=== PATIENT | female | born 1975 | race Hispanic/Latino ===

== ENCOUNTER 2020-04-17 23:02 | Observation (INO) | payer OTHER ==
--- OUTSIDE RECORDS SUMMARY | 2020-04-17 23:05 | XMS REPORT | Clinical Summary ---
:1975 Author Organization [facility] Address [address] [place] [address] Care Team Providers Name Role Phone Kellee Lyon MD Primary Care Provider [phone] Allergies Active Allergy Reactions Severity Noted Date Comments No Known Drug Allergies 02/03/2016 Medications Medication Sig Dispensed Refills Start Date End Date Status amLODIPine (NORVASC) TAKE 1 TABLET 90 tablet 1 10/23/2019 Active 5 mg BY MOUTH EVERY tabletIndications: DAY Essential hypertension ergocalciferol Take 1 capsule 12 capsule 1 04/15/2020 04/15/20 2 Active (VITAMIN D2) 50,000 (50,000 Units 1 unit capsule total) by mouth once a week. acetaminophen-codein Take 1-2 15 tablet 0 04/16/2020 04/21/20 2 Active e (TYLENOL WITH tablets by 0 CODEINE #3) 300-30 mouth every 6 mg per (six) hours as tabletIndications: needed for acute pain moderate pain for up to 5 days .acute pain. ondansetron (ZOFRAN) Take 1 tablet 20 tablet 0 04/16/2020 Active 4 MG tablet (4 mg total) 1 by mouth every 6 (six) hours for 30 days. amLODIPine (NORVASC) TAKE 1 TABLET 90 tablet 1 09/13/201810/08 Discontinued 5 mg (5 MG TOTAL) 0 tabletIndications: BY MOUTH Essential DAILY. hypertension Active Problems Problem Noted Date Abnormal glucose level 02/03/2016 Hypertension 02/03/2016 Impaired fasting glucose 02/03/2016 Multinodular goiter 02/03/2016 Encounters Date Type Specialty Care Team Description 04/15/2020 - Emergency Emergency Medicine Iruke, Seney Bili gillian colic (Primary Dx); 04/16/2020 MD [place] Gallstones; Right upper esvin drant abdominal pain 04/15/2020 Travel 04/15/2020 Refill Internal Medicine Kizzy Peterson MA 04/11/2020 Orders Only Family Medicine ProviderFiona MD 03/21/2020 Telephone Internal Medicine Juve Luciano 03/13/2020 Orders Only Internal Medicine Kizzy Peterson MA Enc ounter for screening mammogram for breast cancer; Goiter 02/12/2020 Lab Lab Kellee Lyon Annual phy sical exam MD Claudia 02/12/2020 Office Visit Internal Medicine Kellee Lyon l physical exam (Primary Dx); MD [place] Flu vaccine nee d; Encounter for s creening mammogram for breast cancer; Screening for s kin cancer; Goiter 02/12/2020 Travel 10/23/2019 Refill Internal Medicine Kellee Lyon MD hypertension after 04/17/2019 Immunizations Name Administration Dates Next Due FLUCELVAX QUAD PF 02/12/2020 FLUZONE QUAD 03/15/2019 FLUZONE QUAD PF 02/03/2016 Influenza Trivalent 02/07/2014 Surgical History Surgery Date Site/Laterality Comments SECTION, LOW x 2 TRANSVERSE EYE SURGERY age 4 SECTION ESOPHAGOSCOPY / EGD 05/11/2017 Dr Stoney Mathis er: gastritis, HH, positive for Bar rett's BIOPSY, LESION, HEAD OR NECK 05/10/2005 - Bilateral Lef t then right - 05/09/2006 colloid nodule; [facility] Medical History Medical History Date Comments Hypertension 05/2003 Obesity Visual impairment Wear glasses Multinodular goiter Hot nodule on right at [facility] 04/15/2005, colloidal cyst aspir ated ' bilateral IGT (impaired glucose tolerance) 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 Dr Levin, repeat 1 year Inconclusive mammogram 02/2020 U/s negative, rep eat ni October Family History Medical History Relation Name Comments Diabetes Father Hypertension Father Melanoma Maternal Grandfather Diabetes Maternal Grandmother Heart disease Maternal Grandmother Hyperlipidemia Maternal Grandmother Hypertension Maternal Grandmother Kidney disease Maternal Grandmother Arthritis Mother Diabetes Paternal Grandfather Cancer Neg Hx Relation Name Status Comments Father Maternal Grandfather Maternal Grandmother Mother Paternal Grandfather Social History Tobacco Use Types Packs/Day Years Used Date Never Smoker Smokeless Tobacco: Never Used Tobacco Cessation: Counseling Given: No Alcohol Use Drinks/Week oz/Week Comments Yes Wine maybe twice a year Social Isolation Answer Date Recorded In a typical week, how many times do you talk on the phone N ot asked with family, friends, or neighbors? How often do you get together with friends or relatives? Not asked How often do you attend spiritism or christianity services? Not as ked Do you belong to any clubs or organizations such as spiritism N ot asked groups, unions, fraternal or athletic groups, or school groups? How often do you attend meetings of the clubs or Not asked organizations you belong to? Are you now , , , , never Mar ried 06/11/2018 or living with a partner? Sex Assigned at Date Recorded Female 03/15/2019 9:19 PM [employer] Job Start Date Occupation Industry Not on file Not on file Not on file COVID-19 Exposure Response Date Recorded In the last month, have you been in contact with No / Unsure 04/15/2020 10:59 PM [employer] someone who was confirmed or suspected to have Coronavirus / COVID-19? History Length Weight Head Circum Gestation Age D/C Weight APGARs Delivery Me thod Feeding N/c. Obstetrics History Grav Para Term Pre Abrt (TAB) (SAB) (Ect) Mult Lvng Comments 2 2 [employer] sect ions. Date Outcome GA Total Labor/2nd/3rd Weight Sex Delivery Anes PTL Mary A 1 A5 Name Clin Labor Para Para Last Filed Vital Signs Vital Sign Reading Time Taken Comments Blood Pressure 112/58 04/16/2020 1:22 AM [employer] Pulse 77 04/16/2020 1:22 AM [employer] Temperature 36.4 C (97.5 F) 04/16/2020 1:22 AM BAND BOOKER Respiratory Rate 16 04/16/2020 1:22 AM [employer]AND BOOKER Oxygen Saturation 97% 04/16/2020 1:22 AM [employer]AND [employer]ER Inhaled Oxygen Concentration - - Weight 119 kg (263 lb) 04/15/2020 11:21 PM [employer] Height 170.2 cm (5' 7") 04/15/2020 11:21 PM [employer] Body Mass Index 41.19 04/15/2020 11:21 PM [employer]ER Plan of Treatment Date Type Specialty Care Team Description 04/24/2020 Office Visit General Surgery Wiley Walker MD [address] [place], [place] [address] [phone] 05/23/2020 Office Visit General Surgery Sterling Darby MD [address] [place], [place] [address] [phone] 06/21/2020 Office Visit Internal Medicine Sharda Lyon MD [address] [facility] [address] [place], [place] [address] [phone] Health Maintenance Due Date Last Done Comments CERVICAL CANCER SCREENING 11/10/1996 INFLUENZA VACCINE Completed 02/12/2020, 03/15/2019, 2017, Additional history exists Procedures Procedure Name Priority Date/Time Associated Comments Diagnosis HCG QUALITATIVE, URINE STAT 04/16/2020 12:53 R esults for this SCREEN AM [employer] procedure are i n the results section. URINALYSIS STAT 04/16/2020 12:53 Results for this AM [employer] procedure are i n the results section. US GALLBLADDER STAT 04/16/2020 12:08 Results f or this AM [employer] procedure are i n the results section. ESTIMATED GFR STAT 04/15/2020 11:40 Results fo r this PM [employer] procedure are i n the results section. AMYLASE LEVEL STAT 04/15/2020 11:40 Results fo r this PM [employer] procedure are i n the results section. HC COMPLETE BLD COUNT STAT 04/15/2020 11:40 Re sults for this W/AUTO DIFF PM [employer] procedure are i n the results section. COMPREHENSIVE STAT 04/15/2020 11:40 Results fo r this METABOLIC PANEL PM [employer] procedure ar e in the results section. US BREAST COMPLETE Routine 04/11/2020 RIGHT VITAMIN D 25 HYDROXY Routine 02/12/2020 12:07 Annual physical Results for this LEVEL PM CDT exam procedure are i n the results section. T4, FREE Routine 02/12/2020 12:07 Annual physical Results for this PM CDT exam procedure are i n the results section. THYROID STIMULATING Routine 02/12/2020 12:07 Annual physical R esults for this HORMONE PM CDT exam procedure are i n the results section. CBC WITH PLATELET AND Routine 02/12/2020 12:07 Annual physical Results for this DIFFERENTIAL PM CDT exam procedure are i n the results section. COMPREHENSIVE Routine 02/12/2020 12:07 Annual physical Results for this METABOLIC PANEL PM CDT exam procedure ar e in the results section. HEMOGLOBIN A1C Routine 02/12/2020 12:07 Annual physical Result s for this PM CDT exam procedure are i n the results section. LIPID PANEL Routine 02/12/2020 12:07 Annual physical Results for this PM CDT exam procedure are i n the results section. ECG 12-LEAD Routine 02/12/2020 10:12 Annual physical Results for this AM CDT exam procedure are i n the results section. after 04/17/2019 Results Urinalysis (04/16/2020 12:53 AM BAND BOOKER) Glucose, UA Negative Negative [facility] Bilirubin, UA Negative Negative [facility] Ketones, UA Negative Negative [facility] Specific gravity, >=1.030 1.001 - 1.035 [facility] Blood, UA Negative Negative [facility] Comment: SELLS Cipher Expert Name: trainee EMERGENCY CARE Device ID: [id number] CENTER pH, UA 5.0 5.0 - 8.5 [facility] Protein, UA Negative Negative [facility] Urobilinogen, UA <2.0 <2.0 [facility] Nitrite, UA Negative Negative [facility] Leukocyte Negative Negative [facility] esterase, UA [facility] Color, UA Yellow [facility] Appearance, UA Hazy [facility] Specimen Urine Performing Organization Address City/State/ZIP Code Phon e Number DEPARTMENT OF PATHOLOGY AND [address] [place] [phone] [facility], [address] [address] [facility]ER[facility]Y [facility] hCG qualitative, urine screen (04/16/2020 12:53 AM BAND BOOKER) hCG qualitative, Negative [facility] urine Comment: SELLS Sensitivity of HCG test: 25 mIU/mL [facility] Negative test results in patients suspected CENTER to be should be retested with a sample obtained 48-72 hours later, or by performing a quantitative assay. Cipher Expert Name: trainee Device ID: [id number] Specimen Urine Performing Organization Address City/State/ZIP Code Phon e Number DEPARTMENT OF PATHOLOGY AND [address] [place], [place] [address] [facility] [address] [place] [address] EMERGENCY CARE CENTER US Gallbladder (04/16/2020 12:08 AM BAND [employer]OOKER) Specimen Narrative Performed At EXAMINATION: US GALLBLADDER [facility] CLINICAL HISTORY: 44 years Female Cholel ithiasis COMPARISON: CT abdomen/pelvis 04/23/20 17 FINDINGS: Gallbladder: A shadowing stone is seen in the gallblad jenny neck measuring up to 3.5 cm. Biliary sludge is seen throughout the ga llbladder. No gallbladder wall thickening or perichole cystic fluid is identified. CBD: 2.2 mm, within normal limits. Liver: The liver demonstrates normal echogenicity with out focal mass or intrahepatic biliary ductal dilatation. Portal vein: The portal vein demonstrates normal hepat opetal flow. The portal vein measures 1.1 cm. IMPRESSION: Cholelithiasis without sonographic evide nce of cholecystitis. [id number] Procedure Note Interface, Radiology Results Incoming - 04/16/2020 12:14 AM BAND [employer]ER EXAMINATION: US GALLBLADDER CLINICAL HISTORY: 44 years Female Cholel ithiasis COMPARISON: CT abdomen/pelvis 7 FINDINGS: Gallbladder: A shadowing stone is seen i n the gallbladder neck measuring up to 3.5 cm. Biliary sludge is seen throughout the gallbladder. No gallbladder wall thickening or pericholecystic fluid is identified. CBD: 2.2 mm, within normal limits. Liver: The liver demonstrates normal ech ogenicity without focal mass or intrahepatic biliary ductal dilatation. Portal vein: The portal vein demonstrate s normal hepatopetal flow. The portal vein measures 1.1 cm. IMPRESSION: Cholelithiasis without sonographic evide nce of cholecystitis. [id number] Performing Organization Address City/State/ZIP Code Phon e Number [facility] [address] [place] [address] Estimated GFR (04/15/2020 11:40 PM BAND BOOKER) Estimated GFR 78 mL/min/1.73 CHRISTY KO Comment: m2 SELLS Catergory Units Interpretation [facility] C[facility] G1 >=90 Normal or high CENTER G2 60-89 Mildly decreased G3a 45-59 Mildly to moderately decreas ed G3b 30-44 Moderately to severely decre ased G4 15-29 Severely decreased G5 <15 Kidney failure The eGFR was calculated using the Chronic Kidney Disea se Epidemiology Collaboration (CKD-EPI) equation. Interpretation is based on recommendations of the National Kidney Foundation-Kidney Disease Outcomes Esvin lity Initiative (NKF-KDOQI) published in 2014. Specimen Plasma Performing Organization Address City/State/ZIP Code Phon e Number DEPARTMENT OF PATHOLOGY AND [address] [place] [address] [facility] [id number] [place] [address] EMER[facility]Y [facility]ARE CENTER CBC with platelet and differential (04/15/2020 11:40 PM BAND BOOKER)Only the most recent of2 resultswithin the time period is included. Pathologist Sig nature WBC 12.19 (H) 4.50 - 11.00 k/uL [facility] RBC 4.72 4.20 - 5.50 m/uL [facility] HGB 14.1 12.0 - 16.0 g/dL [facility] HCT 40.0 37.0 - 47.0 % [facility] MCV 84.7 82.0 - 100.0 fL [facility] MCH 29.9 27.0 - 34.0 pg [facility] MCHC 35.3 31.0 - 37.0 g/dL [facility] RDW - SD 39.9 37.0 - 55.0 fL [facility] MPV 11.2 8.8 - 13.2 fL [facility] Platelet count 299 150 - 400 k/uL [facility] Neutrophils 67.6 39.0 - 69.0 % [facility] Lymphocytes 23.2 (L) 25.0 - 45.0 % [facility] Monocytes 7.1 0.0 - 10.0 % [facility] Eosinophils 1.5 0.0 - 5.0 % [facility] Basophils 0.6 0.0 - 1.0 % [facility] Specimen Plasma Performing Organization Address City/[facility] Phon e Number DEPARTMENT OF PATHOLOGY AND [address] [place] [phone] Amylase level (04/15/2020 11:40 PM BAND BOOKER) Pathologist Sig nature Amylase 38 14 - 97 U/L [facility] Specimen Plasma Performing Organization Address City/[facility] Phon e Number DEPARTMENT OF PATHOLOGY AND [address] [place] [address] Comprehensive metabolic panel (04/15/2020 11:40 PM BAND BOOKER)Only the most recent of2 resultswithin the time period is included. Sodium 140 128 - 145 mEq/L [facility] Potassium 4.3 3.6 - 5.1 mEq/L [facility] CO2 28 18 - 33 mEq/L [facility] Chloride 107 98 - 108 mEq/L [facility] Glucose 129 (H) 73 - 118 mg/dL [facility] Calcium 9.7 8.0 - 10.3 [facility] mg/dL [facility] BUN 15 7 - 22 mg/dL [facility] Creatinine 0.9 0.5 - 0.9 mg/dL [facility] Alkaline phosphatase 74 42 - 141 U/L [facility] ALT 24 10 - 47 U/L [facility] AST 21 11 - 38 U/L [facility] Total bilirubin 0.8 0.2 - 1.6 mg/dL [facility] Albumin 4.4 3.3 - 5.5 g/dL [facility] Protein 7.8 6.4 - 8.1 g/dL [facility] Anion gap 5@ANIO (L) 7 - 15 mEq/L [facility] A/G ratio 1.3 0.7 - 3.8 [facility] Specimen Plasma Performing Organization Address City/[facility]/ZIP Code Phon e Number DEPARTMENT OF PATHOLOGY AND [id number] [place] [address] [facility], [facility] [address] [place] [address] EMERGENCY CARE CENTER US Breast Complete Right (04/11/2020) Narrative Performed At This result has an attachment that is no t available. Vitamin D 25 hydroxy level (02/12/2020 12:07 PM CDT) Vitamin D, 23.7 (L) 30.0 - 100.0 [facility] 25-hydroxy Comment: ng/mL Vitamin D deficiency has been defined by the [place] of Medicine and an Endocrine Society practice guideline a s a level of serum 25-OH vitamin D less than 20 ng/mL (1,2 ). The Endocrine Society went on to further define vitami n D insufficiency as a level between 21 and 29 ng/mL (2). 1. IOM ([place] of Medicine). 2010. Dietary referenc e intakes for calcium and D. [place]: The National Academies Press. 2. Shante MF, Zak CONNER, Linda CHRISTY, et al. Evaluation, treatment, and prevention of vitamin D deficiency: an Endocrine Society clinical practice guideline. JCEM. 2010; 96(7):1911-30. Specimen Blood Narrative Performed At Performed at: - [facility] [address] [place] [address] [id number] [employer] Mechanics Supervisor: Daquan Roman MD, Phone: [phone] Performing Organization Address [facility] Phon e Number [facility] Thyroid stimulating hormone (02/12/2020 12:07 PM CDT) Pathologist Sig nature TSH 0.770 0.450 - 4.500 uIU/mL [facility] Specimen Blood Narrative Performed At Performed at: - [facility] [address] [place] [address] [id number] [phone] [employer] Mechanics Supervisor: Daquan Roman MD, Phone: [phone] Performing Organization Address [facility]/ZIP [facility] Phon e Number [facility] T4, free (02/12/2020 12:07 PM CDT) Pathologist Sig nature T4, free 1.33 0.82 - 1.77 ng/dL [facility] Specimen Blood Narrative Performed At Performed at: [facility] [address] [place] [address] [id number] [phone] [employer] Mechanics Supervisor: Daquan Roman MD, Phone: [phone] Performing Organization Address [facility] e Number [facility] Hemoglobin A1c (02/12/2020 12:07 PM CDT) Pathologist Sig nature Hemoglobin A1C 6.2 (H) 4.8 - 5.6 % [facility] Comment: Prediabetes: 5.7 - 6.4 Diabetes: >6.4 Glycemic control for adults with diabetes : <7.0 Specimen Blood Narrative Performed At Performed at: [facility] [address] [place] [address] [id number] [phone] [employer] Mechanics Supervisor: Daquan Roman MD, Phone: [phone] Performing Organization Address [facility] Phon e Number [facility] Lipid panel (02/12/2020 12:07 PM CDT) Pathologist Sig nature Cholesterol 157 100 - 199 mg/dL [facility] Triglycerides 102 0 - 149 mg/dL [facility] HDL cholesterol 55 >39 mg/dL [facility] VLDL cholesterol natty 19 5 - 40 mg/dL [facility] LDL Chol Calc (NIH) 83 0 - 99 mg/dL [facility] Non-HDL cholesterol 102 0 - 129 mg/dL [facility] Specimen Blood Narrative Performed At Performed at: [facility] [address] [place] [address] [id number] [phone] [employer] Mechanics Supervisor: Daquan Roman MD, Phone: [phone] Performing Organization Address [facility] e Number [email or web address] ECG 12 lead (02/12/2020 10:12 AM CDT) Pathologist Sig nature Ventricular rate 74 [facility] Atrial rate 74 [facility] WA interval 156 [facility] QRSD interval 76 [facility] QT interval 398 [facility] QTC interval 441 [facility] P axis 1 31 [facility] QRS axis 1 8 [facility] T wave axis 17 [facility] EKG impression Normal sinus [facility] rhythm-Minimal voltage criteria for LVH, may be normal variant-No previous ECGs available-Electronicall y Signed By Kellee Lyon MD ([id number]) on 02/12/2020 11:25:19 AM Specimen Narrative Performed At This result has an attachment that is no t available. Performing Organization Address City/State/ZIP Code Phon e Number [facility] MUSE [address] [place] [address] after 04/17/2019 Advance Directives For more information, please contact: [phone] Type Date Recorded Patient Log Rafter Explanati on Advance Directives, Living Will and Medical Power of Real Estate Salesperson
--- OUTSIDE RECORDS SUMMARY | 2020-04-17 23:06 | XMS REPORT | Continuity of Care Document ---
:1975 Author Organization [facility] t Address [facility] Ilya Singh [address] [place] [address] Care Team Providers Name Role Phone Toni HUFFMAN, Arvin F. Primary Care Physician [place] oL MD Attending Clinician Nicholas CHEN Attending Clinician Unavailable Provider Attending Clinician Ankita Attending Clinician Unavailable Toni HUFFMAN, FKvng Attending Clinician Payers Payer Name Policy Type Policy Effective Date Expiration Date [facility] ce Number AETNAAETNA PPO [id number] 2016 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 Family History Family Member Diagnosis Comments Start Date Stop Date Source Natural father Diabetes Sims Me thodist Natural father Hypertension Levi Moser Maternal grandfather Melanoma Klaus Moser Maternal grandmother Diabetes [place] Yazidi Maternal grandmother Heart disease [place] Yazidi Maternal grandmother Hyperlipidemia Sims Yazidi Maternal grandmother Hypertension [place] Yazidi Maternal grandmother Kidney disease Sims Yazidi Natural mother Arthritis [facility] pedroodi Paternal grandfather Diabetes [place] Family member Cancer [place] [facility] Social History Social Habit Start Date Stop Date Quantity Comments Source History SDOH Social [place] Connections Phone Methodi st History SDOH Social [place] Connections Get Yazidi Together History SDOH Social [place] Connections Episc[facility]alian Method ist History SDOH Social [place] [facility]ctions Yazidi Membership History SDOH Social [place] Connections Yazidi Meetings Sex Assigned At F [place] Yazidi Exposure to Not sure [place] SARS-CoV-2 (event) Method ist Tobacco use and 2020-04-15 2020-04-15 Never used [place] exposure 00:00:00 00:00:00 Yazidi Alcohol intake 2020-04-15 2020-04-15 Current drinker [place] 00:00:00 00:00:00 of alcohol Yazidi (finding) History SDOH Social 2018-06-11 2018-06-11 3 [place] Connections Living 00:00:00 00:00:00 Method ist Alcohol Comment 2016-01-29 2016-01-29 Wine maybe twice [place] ston 00:00:00 00:00:00 a year Yazidi Smoking Status Start Date Stop Date Source Never smoker [place] t Medications Ordered Filled Start Stop Current Ordering Indication Dosage Frequency Signature Comments Components Source Medication Medication Date Date Medication? Clinician (SIG) Name Name ondansetron 2019-05- Yes 4mg Q6H Take 1 [place] ston (ZOFRAN) 4 2-08 -07 tablet (4 Met h[facility] MG tablet 00:00: 23:59 mg total) st 00 :00 by mouth every 6 (six) hours for 30 days. acetaminoph 2019-05- Yes acute pain 1{tbl} Q6H Take 1-2 Sims en-codeine 2-08 12-13 tablets by Me bruner (TYLENOL 00:00: 23:[address] WITH 00 :00 every 6 CODEINE #3) (six) 300-30 mg hours as per tablet needed for moderate pain for up to 5 days .acute pain. ergocalcife 2019-05- Yes [id number] Q7D Take 1 [place] rol 2-07 12-07 capsule Methodi (VITAMIN 00:00: 23:59 (50,000 st D2) 50,000 00 :00 Units unit total) by capsule mouth once a week. amLODIPine Yes Essential TAKE 1 [place] ([facility]) 5 6-15 hypertensio TABLET BY Methodi mg tablet 00:00: n MOUTH st 00 EVERY DAY amLODIPine 2020- No Essential TAKE 1 [place] ([facility]) 5 5-07 06-15 hypertensio TABLET (5 [facility]i mg tablet 00:00: 00:00 n MG TOTAL) st 00 :00 BY MOUTH DAILY. Immunizations Ordered Immunization Filled Immunization Date Status Commen ts Source Name Name FLUCELVAX QUAD PF 2020-02-12 Completed [place] 00:00:00 Yazidi FLUZONE QUAD 2019-03-15 Completed [place] 00:00:00 Yazidi FLUZONE QUAD PF 2016-02-03 Completed [place] 00:00:00 Y[place]idi Influenza Trivalent 2014-02-07 Completed [place] 00:00:00 Yazidi Vital Signs Vital Name Observation Time Observation Value Comments Source Systolic blood 2020-04-16 01:22:00 112 mm[Hg] [place] pressure Diastolic blood 2020-04-16 01:22:00 58 mm[Hg] [place] Y[place]idi pressure Heart rate 2020-04-16 01:22:00 77 /min Levi Moser Body temperature 2020-04-16 01:22:00 36.39 Natalya [place] Yazidi Respiratory rate 2020-04-16 01:22:00 16 /min [place] Oxygen saturation in 2020-04-16 01:22:00 97 /min Levi Moser Arterial blood by Pulse oximetry Body height 2020-04-15 23:21:00 170.2 cm Levi Moser Body weight 2020-04-15 23:21:00 119.296 kg Levi Moser BMI 2020-04-15 23:21:00 41.19 kg/m2 Levi Moser Procedures Procedure Date / Time Performed Performing Clinician Sourc e URINALYSIS 2020-04-16 00:53:00 Augustus Lo Me thodist [place] HCG QUALITATIVE, URINE 2020-04-16 00:53:00 Augustus Lou storui Yazidi SCREEN [place] US GALLBLADDER 2020-04-16 00:08:51 Augustus Lo Me thodist [place] COMPREHENSIVE METABOLIC 2020-04-15 23:40:00 Augustus Lo laverne Yazidi PANEL [place] HC COMPLETE BLD COUNT 2020-04-15 23:40:00 Augustus Lo laverne Moser W/AUTO DIFF [place] AMYLASE LEVEL 2020-04-15 23:40:00 Augustus Lo Ia thodist [place] ESTIMATED GFR 2020-04-15 23:40:00 Augustus Lo Ia thodist [place] US BREAST COMPLETE RIGHT 2020-04-11 00:00:00 Provider, Rodolfo Moser LIPID PANEL 2020-02-12 12:07:00 Arvin Lyon HEMOGLOBIN A1C 2020-02-12 12:07:00 Arvin Lyon COMPREHENSIVE METABOLIC 2020-02-12 12:07:00 Arvin Lyon PANEL CBC WITH PLATELET AND 2020-02-12 12:07:00 Arvin Lyon DIFFERENTIAL THYROID STIMULATING 2020-02-12 12:07:00 Arvin Lyon HORMONE T4, FREE 2020-02-12 12:07:00 Arvin Lyon VITAMIN D 25 HYDROXY 2020-02-12 12:07:00 Arvin Lyon LEVEL ECG 12-LEAD 2020-02-12 10:12:53 Arvin Lyon Plan of Care Planned Activity Planned Date Details Comments Source Future Scheduled 1996-11-10 Screening for Levi Ia thodist Test 00:00:00 malignant neoplasm of cervix (procedure) [code = 698562180] Encounters Start End Encounter Admission Attending Care Care Encounter Source Date/Time Date/Time Type Type Clinicians Facility Department ID 2020-04-15 2020-04-16 Emergency IRENA [facility] [id number] [place] 00:00:00 00:00:00 AUGUSTUS [address] 2020-02-12 2020-02-12 Outpatient TONI [facility] [id number] [place] 00:00:00 00:00:00 ARVIN [address] 2020-02-12 2020-02-12 Outpatient [facility] [id number] [place] 00:00:00 00:00:[address] Results Test Description Test Time Test Comments Results Result Comments Source hCG qualitative, urine screen 2020-04-16 01:01:32 Test Item Value Reference Range Interpretation Comme nts hCG qualitative, urine (test code = Negative Sensitivity of HCG test: 25 6-3) mIU/mLNegative test results in patients suspec berta to be should be retes berta with a sample obtained 48-72 hours later, or by performing a qu antitative assay. Tube Man Name: traineeDevice ID: [id number] Sims [id number] 00:58:05 Test Item Value Reference Range Interpretation Comments Glucose, UA (test Negative Negative code = 71220-6) Bilirubin, UA (test Negative Negative code = 5770-3) Ketones, UA (test Negative Negative code = 2514-8) Specific gravity, UA >=1.030 1.001-1.035 (test code = 5811-5) Blood, UA (test code Negative Negative Operato r Name: = 5794-3) traineeDevice I D: [id number] pH, UA (test code = 5.0 5.0-8.5 5803-2) Protein, UA (test Negative Negative code = 10764-4) Urobilinogen, UA <2.0 <2.0 (test code = 93154-3) Nitrite, UA (test Negative Negative code = 5802-4) Leukocyte esterase, Negative Negative UA (test code = 5799-2) Color, UA (test code Yellow = 5778-6) Appearance, UA (test Hazy code = 5767-9) Sims MethodistAmylase [id number] 00:13:14 Test Item Value Reference Range Interpretation Comments Amylase (test code = 1798-8) 38 U/L 14-97 Levi Cespedes [id number] 00:11:10Hm Interface, Radiology Results - 04/16/2020 12:14 AM CSTEXAMINATION: US GALLBLADDERCLINICAL HISTORY: 44 years Female CholelithiasisCOMPARISON: CT abdomen/pelvis 04/23/2017FINDINGS:Gallbladder: A shadowing stone is seen in the gallbladder neck measuring up to 3.5 cm. Biliary sludge is seen throughout the gallbladder. No gallbladder wall thickening or pericholecystic fluid is identified.CBD: 2.2 mm, within normal limits.Liver: The liver demonstrates normal echogenicity without focal mass or intrahepatic biliary ductal dilatation.Portal vein: The portal vein demonstrates normal hepatopetal flow. The portal vein measures 1.1 cm.IMPRESSION:Cholelithiasis without sonographic evidence of chol ecystitis.[id number] MethodistCom[facility] metabolic [id number] 00:05:28 Test Item Value Reference Range Interpretation Comments Sodium (test code = 2951-2) 140 128- 145 mEq/L Potassium (test code = 2823-3) 4.3 3.6- 5.1 mEq/L CO2 (test code = 2027-9) 28 18- 33 mEq/L Chloride (test code = 2075-0) 107 98- 108 mEq/L Glucose (test code = 2345-7) 129 mg/dL 73-118 H Calcium (test code = 14369-8) 9.7 mg/dL 8-10.3 BUN (test code = 3094-0) 15 mg/dL 7-22 Creatinine (test code = 2160-0) 0.9 mg/dL 0.5-0.9 Alkaline phosphatase (test code = 74 U/L 42-141 6768-6) ALT (test code = 1742-6) 24 U/L 10-47 AST (test code = 1920-8) 21 U/L 11-38 Total bilirubin (test code = 0.8 mg/dL 0.2-1.6 1974-2) Albumin (test code = 1751-7) 4.4 g/dL 3.3-5.5 Protein (test code = 2885-2) 7.8 g/dL 6.4-8.1 Anion gap (test code = 09840-5) 5@ANIO 7- 15 mEq/L L A/G ratio (test code = 1759-0) 1.3 0.7-3.8 Lab Interpretation (test code = Abnormal 76663-7) Levi MethodistCB with platelet and [id number] 00:05:28 Test Item Value Reference Range Interpretation Comments WBC (test code = 96416-3) 12.19 4.50- 11.00 k/uL H RBC (test code = 18756-5) 4.72 m/uL 4.2-5.5 HGB (test code = 718-7) 14.1 g/dL 12-16 HCT (test code = 4544-3) 40.0 % 37-47 MCV (test code = 787-2) 84.7 fL 82-100 MCH (test code = 785-6) 29.9 pg 27-34 MCHC (test code = 786-4) 35.3 g/dL 31-37 RDW - SD (test code = 00195-0) 39.9 fL 37-55 MPV (test code = 09961-1) 11.2 fL 8.8-13.2 Platelet count (test code = 299 150- 400 k/uL 65787-4) Neutrophils (test code = 80482-2) 67.6 % 39-69 Lymphocytes (test code = 60995-8) 23.2 % 25-45 L Monocytes (test code = 68419-9) 7.1 % 0-10 Eosinophils (test code = 52260-2) 1.5 % 0-5 Basophils (test code = 19584-3) 0.6 % 0-1 Lab Interpretation (test code = Abnormal 33289-6) Sims MethodistEstimated [id number] 00:05:28 Test Item Value Reference Range Interpretation Comments Estimated GFR (test 78 mL/min/1.73 m2 Caterg ory Units code = 5488) InterpretationG 1 >=90 Normal or highG2 60-89 Mildly tfngdrfymH8r 45-59 Mildly to mode rately qrkwrsvltP8w 30-44 Moderately to severely decreasedG4 15-29 Severely decre asedG5 <15 Kidn ey failureThe eGFR was calculated luis enrique g the Chronic Kidney Disease Epidemiology Co llaboration (CKD-EPI) equat ion. Interpretation is based on recommendations of the National Kidney Foundation-Kidn ey Disease Outcomes Qualit y Initiative (NKF-KDOQI) pub lished in 2014. Levi MethodistHemoglobin [id number] 16:10:00 Test Item Value Reference Range Interpretation Comments Hemoglobin A1C (test 6.2 % 4.8-5.6 H code = 4548-4) Prediabetes: 5.7 - 6.4 Diabetes: >6.4 Glycemic control for adults with diabetes: <7.0 TIA (test code = TIA) Performed at: [facility] [address] [id number] Director: Daquan Roman MD, Phone: [phone] Lab Interpretation Abnormal (test code = 60454-8) [place] MethodistThyroid stimulating [id number] 09:05:00 Test Item Value Reference Range Interpretation Comments TSH (test code = 0.770 0.450- 4.500 uIU/mL 29598-9) TIA (test code = Performed at: TIA) [facility] [address] [id number] Director: Daquan Roman MD, Phone: [phone] [place] MethodistVitamin D 25 hydroxy [id number] 08:14:00 Test Item Value Reference Range Interpretation Comments Vitamin D, 23.7 ng/mL 30-100 L Vitamin D 25-hydroxy (test deficiency has been code = 37260-1) defined by [facility] and an Endocrine Socie ty practice guidel ine as alevel of se rum 25-OH vitamin D less than 20 ng /mL (1,2).The Endoc rine Society went on to further define vitamin Dinsufficiency as a level between 2 1 and 29 ng/mL (2 ).1. IOM ([place] of Medicine). 2010 . Dietary referen ce intakes for natty cium and D. [place]: The [employer] .2. Shante MF, Carmen CONNER, Stanford CHRISTY, et al. Evaluation, treatment, and prevention of vitamin D deficiency: an Endocrine Socie ty clinical practi ce guideline. JCEM . 2010; 96(7):1911-30. TIA (test code = Performed at: TIA) [facility] [address] [id number] Director: Daquan Roman MD, Phone: [phone] Lab Interpretation Abnormal (test code = 19463-4) [place] MethodistLipid [id number] 05:07:00 Test Item Value Reference Range Interpretation Comments Cholesterol (test code = 157 mg/dL 746-990 3269-3) Triglycerides (test code 102 mg/dL 0-149 = 2571-8) HDL cholesterol (test 55 mg/dL >39 code = 2085-9) VLDL cholesterol natty 19 mg/dL 5-40 (test code = 20896-2) LDL Chol Calc ([facility]) 83 mg/dL 0-99 (test code = 58462-4) Non-HDL cholesterol 102 mg/dL 0-129 (test code = 18336-9) TIA (test code = TIA) Performed at: - [facility] [id number] Director: Daquan Roman MD, Phone: [phone] [facility], [id number] 05:07:00 Test Item Value Reference Range Interpretation Comments T4, free (test code 1.33 ng/dL 0.82-1.77 = 3024-7) TIA (test code = Performed at: - TIA) [facility] [id number] Director: Daquan Roman MD, Phone: [phone] [facility] 12 [id number] 11:25:21 Test Item Value Reference Range Interpretation Comments Ventricular rate (test 74 code = 253) Atrial rate (test code = 74 255) OH interval (test code = 156 266) QRSD interval (test code 76 = 260) QT interval (test code = 398 264) QTC interval (test code 441 = 265) P axis 1 (test code = 31 267) QRS axis 1 (test code = 8 268) T wave axis (test code = 17 270) EKG impression (test Normal sinus code = 273) rhythm-Minimal voltage criteria for LVH, may be normal variant-No previous ECGs available-Electronica lly Signed By Arvin Lyon MD ([id number]) on 02/12/2020 11:25:19 AM Levi Moser
[2020-04-18] MEDS ORDERED: MORPHINE 4 MG/ML SYR ONE (00:35)
[2020-04-18] MEDS ORDERED: ONDANSETRON 4 MG/2 ML VIAL ONE (00:35)
[2020-04-18 00:45] LABS: Urine Specific Gravity >1.030 (1.005-1.030)
[2020-04-18 00:46] LABS: Urine Blood NEGATIVE (NEG); Urine Glucose NEGATIVE (NEG); Urine Protein NEGATIVE (NEG); Urine pH 5.5 (5.0-7.0)
[2020-04-18 00:50] LABS: Absolute Lymphocytes (CBC) 2.4 K/uL (0.7-4.9); Basophils % 0.9 % (0-1.3); Hematocrit 40.7 % (36.0-45.0); Lymphocytes % 19.2 % (15.3-44.8); RBC Red Blood Cell Count 4.68 M/uL (3.86-4.86)
[2020-04-18 01:01] LABS: Bilirubin Direct 0.1 mg/dL (0-0.2); Bilirubin Total 0.3 mg/dL (0.2-1.0); Potassium 3.6 mmol/L (3.5-5.1); Protein, Total 8.3 g/dL (6.4-8.2)
--- NOTE | 2020-04-18 01:29 | EDPHYS ---
Physician Documentation [facility] Name: Nargis Kaplan Age: 44 yrs Sex: Female : 1975 Arrival Date: 04/17/2020 Time: 23:04 Bed 14 Private MD: ED Physician Dat German HPI: 04/18 01:24 This 44 yrs old Female presents to ER via Ambulatory with complaints of rn Abdominal Pain. 01:24 The patient presents with abdominal pain in the epigastric area, in the right upper rn quadrant. Onset: The symptoms/episode began/occurred 2 week(s) ago. The symptoms radiate to Associated signs and symptoms: Pertinent positives: nausea and vomiting, Pertinent negatives: blood in stools, fever. The symptoms are described as achy, crampy. Modifying factors: The symptoms are alleviated by nothing, the symptoms are aggravated by touching the area. Severity of pain: At its worst the pain was moderate in the emergency department the pain is unchanged. The patient has experienced similar episodes in the past. The patient has been recently seen by a physician:. Sent by Dr. fabian for suspected acute cholecystitis, had u/s done on Wednesday at OSH, showed cholelithiasis, pain got worse, now constant and more severe. . 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 - Social history:: Smoking status: Patient denies any tobacco usage or history of. - Family history:: not pertinent. - Hospitalizations: : No recent hospitalization is reported. ROS: 04/18 01:24 Constitutional: Negative for fever, chills, and weight loss, Eyes: Negative for injury, rn pain, redness, and discharge, Neck: Negative for injury, pain, and swelling, Cardiovascular: Negative for chest pain, palpitations, and edema, Respiratory: Negative for shortness of breath, cough, wheezing, and pleuritic chest pain, Abdomen/GI: + abd pain and nausea/vomiting Back: Negative for injury and pain, MS/Extremity: Negative for injury and deformity, Skin: Negative for injury, rash, and discoloration, Neuro: Negative for headache, weakness, numbness, tingling, and seizure. Exam: 01:24 Constitutional: This is a well developed, well nourished patient who is awake, alert, rn and in no acute distress. Head/Face: Normocephalic, atraumatic. Cardiovascular: Regular rate and rhythm. No pulse deficits. Respiratory: No increased work of breathing, no retractions or nasal flaring. Abdomen/GI: soft, + RUQ tenderness, no rebound Skin: Warm, dry MS/ Extremity: Pulses equal, no cyanosis. Neuro: Awake and alert, GCS 15 Vital Signs: 04/17 23:18 BP 124 / 88; Pulse 89; Resp 16; Temp 97.3; Pulse Ox 98% on R/A; Weight 119.29 kg; iw Height 5 ft. 7 in. (170.18 cm); Pain /; 04/18 00:30 BP 151 / 88; Pulse 80; Resp 18; Pulse Ox 99% ; ea 01:00 BP 135 / 84; Pulse 67; Resp 18; Pulse Ox 99% ; ea 02:00 BP 150 / 88; Pulse 64; Resp 18; Pulse Ox 97% ; ea 04/17 23:18 Body Mass Index 41.19 (119.29 kg, 170.18 cm) iw MDM: 04/17 23:54 Patient medically screened. rn 04/18 01:24 Differential diagnosis: cholecystitis, Cholelithiasis, gastritis, gastroesophageal rn reflux disease. Data reviewed: vital signs, nurses notes, lab test result(s), and as a result, I will admit patient. Counseling: I had a detailed discussion with the patient and/or guardian regarding: the historical points, exam findings, and any diagnostic results supporting the discharge/admit diagnosis, lab results, the need for further work-up and treatment in the hospital. Response to treatment: the patient's symptoms have mildly improved after treatment, and as a result, I will admit patient. Admission orders: after a detailed discussion of the patient's condition and case, the admit orders are written by me. ED course: Consulted with Dr. Fabian, will admit to his service, normal lfts/lipase, will get cholecystectomy today, NPO, covid sent, pre-op orders completed. . 04/17 23:55 Order name: Basic Metabolic Panel; Complete Time: 01:18 rn 04/17 23:55 Order name: CBC with Diff rn 04/17 23:55 Order name: Hepatic Function rn 04/17 23:55 Order name: Lipase rn 04/18 00:11 Order name: Urine Dipstick--Ancillary (enter results) [facility] 04/18 00:11 Order name: Urine --Ancillary (enter results) 2 04/18 00:45 Order name: Urine --Ancillary; Complete Time: 00:55 [facility] 04/18 00:46 Order name: Urine Dipstick-Ancillary; Complete Time: 00:55 [facility] 04/18 00:54 Order name: CBC with Automated Diff; Complete Time: 00:55 [facility] 04/18 01:02 Order name: Liver (Hepatic) Function; Complete Time: 01:18 [facility] 04/18 01:02 Order name: Lipase; Complete Time: 01:18 [facility] 04/18 01:31 Order name: COVID-19 ea 04/18 02:09 Order name: CORONAVIRUS [facility] 04/18 03:06 Order name: SARS-COV-2 RT PCR [facility] 04/17 23:55 Order name: IV Saline Lock; Complete Time: 00:34 rn 04/17 23:55 Order name: Labs collected and sent; Complete Time: 00:34 rn 04/18 00:00 Order name: EKG; Complete Time: 00:01 rn 04/18 00:00 Order name: EKG - Nurse/Tech; Complete Time: 00:52 rn 04/18 00:00 Order name: Urine Test (obtain specimen); Complete Time: 00:34 rn 04/18 00:00 Order name: Urine Dipstick-Ancillary (obtain specimen); Complete Time: 00:34 rn 04/18 00:00 Order name: XRAY Chest (1 view) rn Administered Medications: 00:33 Drug: morphine 4 mg {Note: rass 0.} Route: IVP; Site: right antecubital; ea 01:46 Follow up: Response: No adverse reaction; Pain is decreased; RASS: Alert and Calm (0) ea 00:34 Drug: Zofran (Ondansetron) 4 mg Route: IVP; Site: right antecubital; ea 01:46 Follow up: Response: No adverse reaction ea 01:45 Drug: Flagyl 500 mg Volume: 100 ml; Route: IVPB; Rate: 200 ml/hr; Infused Over: 30 ea mins; Site: right antecubital; 02:48 Follow up: Response: No adverse reaction; IV Status: Completed infusion ea 01:46 Drug: Rocephin 1 grams Route: IV; Rate: calculated rate; Site: right antecubital; ea 02:48 Follow up: Response: No adverse reaction; IV Status: Completed infusion ea Disposition: 04/18/20 01:29 Hospitalization ordered by Ariel Fabian for Inpatient Admission. Preliminary diagnosis is Cholecystitis, unspecified. - Bed requested for Telemetry/MedSurg (Inpatient). - Status is Inpatient Admission. rv - Condition is Stable. - Problem is an ongoing problem. - Symptoms have improved. Signatures: Dispatcher [employer] EDMS Delma Mcmullen RN RN iw Nieto, Roman, MD MD rn Lasagna, Tonya, RN RN tl1 Nelida Cristobal RN RN ea Vicente, Ronaldo RN RN rv Corrections: (The following items were deleted from the chart) 02:08 01:29 Hospitalization Ordered by Ariel Fabian MD for Inpatient Admission. Preliminary tl1 diagnosis is Cholecystitis, unspecified. Bed requested for Telemetry/MedSurg (Inpatient). Status is Inpatient Admission. Condition is Stable. Problem is an ongoing problem. Symptoms have improved. rn 03:09 02:08 04/18/2020 01:29 Hospitalization Ordered by Ariel Fabian MD for Inpatient tl1 Admission. Preliminary diagnosis is Cholecystitis, unspecified. Bed requested for [facility] ER HOLD. Status is Inpatient Admission. Condition is Stable. Problem is an ongoing problem. Symptoms have improved. tl1 03:41 03:09 04/18/2020 01:29 Hospitalization Ordered by Ariel Fabian MD for Inpatient rv Admission. Preliminary diagnosis is Cholecystitis, unspecified. Bed requested for Telemetry/MedSurg (Inpatient). Status is Inpatient Admission. Condition is Stable. Problem is an ongoing problem. Symptoms have improved. tl1
--- NOTE | 2020-04-18 01:29 | ER ---
Nurse's Notes [facility] Name: Nargis Kaplan Age: 44 yrs Sex: Female : 1975 Arrival Date: 04/17/2020 Time: 23:04 Bed 14 Private MD: Diagnosis: Cholecystitis, unspecified Presentation: 04/17 23:18 Chief complaint: Patient states: has gallstones, is due for surgery with Dr. Aaron iw on Wednesday but is having a lot of pain. Coronavirus screen: At this time, the client does not indicate any symptoms associated with coronavirus-19. Ebola Screen: Patient negative for fever greater than or equal to 101.5 degrees Fahrenheit, and additional compatible Ebola Virus Disease symptoms Patient denies exposure to infectious person. Patient denies travel to an Ebola-affected area in the 21 days before illness onset. No symptoms or risks identified at this time. Initial Sepsis Screen: Does the patient meet any 2 criteria? No. Patient's initial sepsis screen is negative. Does the patient have a suspected source of infection? No. Patient's initial sepsis screen is negative. Risk Assessment: Do you want to hurt yourself or someone else? Patient reports no desire to harm self or others. Onset of symptoms. 23:18 Method Of Arrival: Ambulatory iw 23:18 Acuity: JOSE EDUARDO 3 iw CLINICAL RESEARCH ANALYST: 23:21 LMP 03/24/2020 iw Historical: - Allergies: 23:21 No Known Allergies; iw - Home Meds: 23:21 amlodipine 5 mg tab 1 tab once daily [Active]; Vitamin D Oral [Active]; Augmentin iw 875-125 mg Oral tab 1 tab every 12 hours [Active]; Tylenol #3 Oral [Active]; - PMHx: 23:21 Hypertension; iw - PSHx: 23:21 ; eye; iw - Immunization history:: Adult Immunizations up to date. - Social history:: Smoking status: Patient denies any tobacco usage or history of. - Family history:: not pertinent. - Hospitalizations: : No recent hospitalization is reported. Screenin/10 00:35 Abuse screen: Denies threats or abuse. Nutritional screening: No deficits noted. ea Tuberculosis screening: No symptoms or risk factors identified. Fall Risk IV access (20 points). Assessment: 00:00 General: Appears uncomfortable, Behavior is appropriate for age. Pain: Complains of ea pain in abdomen. Neuro: Level of Consciousness is awake, alert, obeys commands, Oriented to person, place, time, situation. Cardiovascular: Patient's skin is warm and dry. Respiratory: Airway is patent Respiratory effort is even, unlabored, Respiratory pattern is regular, symmetrical. GI: Abdomen is non-distended. Derm: Skin is pink, warm \T\ dry. Vital Signs: 04/17 23:18 BP 124 / 88; Pulse 89; Resp 16; Temp 97.3; Pulse Ox 98% on R/A; Weight 119.29 kg; iw Height 5 ft. 7 in. (170.18 cm); Pain 8/10; 04/18 00:30 BP 151 / 88; Pulse 80; Resp 18; Pulse Ox 99% ; ea 01:00 BP 135 / 84; Pulse 67; Resp 18; Pulse Ox 99% ; ea 02:00 BP 150 / 88; Pulse 64; Resp 18; Pulse Ox 97% ; ea 04/17 23:18 Body Mass Index 41.19 (119.29 kg, 170.18 cm) iw ED Course: 04/17 23:04 Patient arrived in ED. cl3 23:20 Triage completed. iw 23:54 Dat German MD is Attending Physician. rn 04/18 00:00 Patient has correct armband on for positive identification. Placed in gown. Bed in low ea position. Call light in reach. Side rails up X 1. Adult w/ patient. 00:01 Nelida Cristobal, CRISTHIAN is Primary Nurse. ea 00:22 XRAY Chest (1 view) In Process Unspecified. EDMS 00:35 Inserted saline lock: 20 gauge in right antecubital area, using aseptic technique. ea Blood collected. 00:35 Arm band placed on right wrist. ea 01:29 Ariel Aaron MD is Hospitalizing Provider. rn 02:42 No provider procedures requiring assistance completed. Patient admitted, IV remains in ea place. Administered Medications: 00:33 Drug: morphine 4 mg {Note: rass 0.} Route: IVP; Site: right antecubital; ea 01:46 Follow up: Response: No adverse reaction; Pain is decreased; RASS: Alert and Calm (0) ea 00:34 Drug: Zofran (Ondansetron) 4 mg Route: IVP; Site: right antecubital; ea 01:46 Follow up: Response: No adverse reaction ea 01:45 Drug: Flagyl 500 mg Volume: 100 ml; Route: IVPB; Rate: 200 ml/hr; Infused Over: 30 ea mins; Site: right antecubital; 02:48 Follow up: Response: No adverse reaction; IV Status: Completed infusion ea 01:46 Drug: Rocephin 1 grams Route: IV; Rate: calculated rate; Site: right antecubital; ea 02:48 Follow up: Response: No adverse reaction; IV Status: Completed infusion ea Outcome: 01:29 Decision to Hospitalize by Provider. rn 02:42 Admitted to ER Hold. [email or web address] for further documentation. ea 02:42 Condition: stable 02:42 Instructed on the need for admit, Demonstrated understanding of instructions. 03:41 Patient left the ED. rv Signatures: Dispatcher [employer] Delma Melendez RN RN iw Nieto, Roman, MD MD rn Antunez, Elena, RN RN ea Vicente, Ronaldo, RN RN rv Lewis, Charde cl3 Corrections: (The following items were deleted from the chart) 04/17 23:21 23:18 Pulse 89bpm; Resp 16bpm; Pulse Ox 98% RA; Temp 97.3F; 119.29 kg; Height 5 ft. 7 iw in.; BMI: 41.1; Pain 8/10; iw
[2020-04-18] MEDS ORDERED: METRONIDAZOLE 500mg IVPB 500 MG/100 ML BAG IV ONE (01:47)
[2020-04-18] MEDS ORDERED: CEFTRIAXONE/SWI 1gm 1 GM/10 ML SYR ONE (01:47)
[2020-04-18 02:40] VITALS: BMI 41.1
[2020-04-18] MEDS ORDERED: MORPHINE 4 MG/ML SYR IV PRN (02:52)
[2020-04-18] MEDS: D5 0.45 NS 1,000 ML IV SCH ×3 (02:52→17:10)
[2020-04-18] MEDS ORDERED: ONDANSETRON 4 MG/2 ML VIAL IV PRN (02:52)
[2020-04-18] MEDS ORDERED: CEFOXITIN SODIUM 1 GM/VIAL IVPB SCH (06:00)
[2020-04-18] MEDS: CEFOXITIN/SWI 1gm 1 GM/10 ML SYR IV SCH ×2 (06:00→12:48)
[2020-04-18] MEDS ORDERED: CEFOXITIN/SWI 1gm 1 GM/10 ML SYR ONE (06:20)
--- NOTE | 2020-04-18 07:23 | RAD REPORT ---
EXAM DESCRIPTION: Ramón Single View04/18/2020 12:22 am CLINICAL HISTORY: Preop COMPARISON: none FINDINGS: The lungs appear clear of acute infiltrate. The heart is normal size IMPRESSION: No acute abnormalities displayed
[2020-04-18] MEDS ORDERED: PNEUMOCOCCAL VACCINE 0.5 ML IMVAC ONE (09:00)
[2020-04-18] MEDS ORDERED: ACETAMINOPHEN 500 MG TAB PO ONE (10:19)
--- NOTE | 2020-04-18 10:57 | EKG ---
Test Date: 2020-04-18 Test Time: 00:45:24 Waste Salvager: DOROTHY MEASUREMENT RESULTS: Intervals: Rate: 67 MA: 180 QRSD: 84 QT: 400 QTc: 422 [place]: P: 39 MA: 180 QRS: 17 T: 25 INTERPRETIVE STATEMENTS: Normal sinus rhythm Normal ECG No previous ECG available for comparison Electronically Signed On 04-18-20 10:56:19 PRIVATE PILOT by Keron Freitas
[2020-04-18] MEDS ORDERED: Ringers Lactate 1,000 ML IV ONE ×2 (13:59→15:31)
[2020-04-18] MEDS ORDERED: SUCCINYLCHOLINE 20 MG/ML (10 ML) IV ONE (14:34)
[2020-04-18] MEDS ORDERED: propofoL 200 MG/20 ML VIAL IV ONE (14:38)
[2020-04-18] MEDS ORDERED: ROCURONIUM 50 MG/5 ML VIAL IV ONE (14:39)
[2020-04-18] MEDS ORDERED: FENTANYL CITR 100 MCG/2 ML ONE ×2 (14:39→15:11)
[2020-04-18] MEDS ORDERED: MIDAZOLAM HCL 2 MG/2 ML INJ ONE (14:39)
--- NOTE | 2020-04-18 15:02 | HP ---
Date of Admission: 04/18/2020 Diagnosis: Acute cholecystitis, symptomatic cholelithiasis. History Of Present Illness: This is the case of a 44-year-old patient, known by us since yesterday. She comes to my office with epigastric right upper quadrant pain radiating to the back, started on M onday. She went to an ER, sent home and to my office yesterday. She is booked for surgery tomorrow, but last night she could not take it anymore and she came to our ER and she was admitted with acute cholecystitis, symptomatic cholelithiasis. She denies any dysuria, hematuria, hematochezia, melena. Denies any recent traveling out of the country. Denies any family member sick at home. The entire week, she barely ate anything. She states she cannot tolerate food. Allergies: NONE. LAST MENSTRUAL PERIOD, 03/24/2020. Medications: Include vitamin D, Augmentin, Tylenol No.3, amlodipine. Medical History: Hypertension. Past Surgical History: Eye surgery and . Social History: She does not smoke. She does not drink alcohol. Review of Systems: She denies any fever, shortness of breath. No chest pain. Ten points otherwise unremarkable. Pleas e see H and P. Physical Examination: General: The patient is awake, alert. HEENT: Pupils are equal and reactive. Anicteric. Neck: Supple. Chest: Clear. Abdomen: Epigastric right upper quadrant tenderness with Melton sign positive. The rest of the abdo men is soft and depressible. Breasts: Deferred. Pelvic: Deferred. Rectal: Deferred. Extremities: Good capillary refill. Neuro: Cranial nerves 2 through 12 grossly normal limits. Laboratory Data: Blood work shows WBC count of 12.7 with a potassium of 3.6, glucose 124, total bili chavarria of 0.3, alkaline phosphatase 91, lipase 137. The patient has previously an ultrasound done at another institution showing cholelithiasis. Assessment: This is a 44-year-old patient with acute cholecystitis, symptomatic cholelithiasis. The benefits, alternatives, and risks of laparoscopic possible open cholecystectomy were fully explained , which include, but not limited to infection, bleeding, damage to adjacent structures, anesthesia co mplication, choledocholithiasis, bile leak, pancreatitis, [place], and even . She also understands t his may not relieve the symptoms. She might need more than one surgical intervention. She understoo d and booked in OR. VIOLETTA/AJ Voice ID: [id number]
[2020-04-18] MEDS ORDERED: GLYCOPYRROLATE 0.2 MG/ML SYR ONE ×2 (16:02)
[2020-04-18] MEDS ORDERED: NEOSTIGMINE 1 MG/ML -5 ML ONE (16:02)
[2020-04-18] MEDS ORDERED: dexAMETHasone 4 MG/ML VIAL ONE (16:02)
[2020-04-18] MEDS ORDERED: MORPHINE 2 MG/ML SYR IV PRN (16:03)
--- NOTE | 2020-04-18 16:07 | P.BOP ---
Preoperative diagnosis: acute cholecystitis, sympt cholelithiasis Postoperative diagnosis: same plus acute suppurative cholecystitis Primary procedure: Laparoscopic cholecystectomy Estimated blood loss: <20cc Specimen: gb Findings: acute suppurative cholecystitis Anesthesia: General Complications: None Drain(s): ALETHA drain Transferred to: Recovery Room Condition: Good
[2020-04-18] MEDS: HYDROMORPHONE HCL 1 MG/ML INJ ONE ×4 (16:09→17:02)
[2020-04-18] MEDS: HYDROCODONE/APAP 7.5/325 MG TAB PO PRN (23:10)
[2020-04-19 00:16] VITALS: O2SAT 93
[2020-04-19] MEDS: D5 0.45 NS 1,000 ML IV SCH (00:59)
[2020-04-19] MEDS: HYDROCODONE/APAP 7.5/325 MG TAB PO PRN ×2 (04:37→09:03)
[2020-04-19 06:32] LABS: Absolute Lymphocytes (CBC) 1.4 K/uL (0.7-4.9); Basophils % 0.5 % (0-1.3); Lymphocytes % 11.1 % (15.3-44.8); MPV 9.9 fL (7.6-11.3); RBC Red Blood Cell Count 4.09 M/uL (3.86-4.86)
[2020-04-19 06:50] LABS: BUN Blood Urea Nitrogen 7 mg/dL (7-18); Bicarbonate 27 mmol/L (21-32); Glucose Level 134 mg/dL (74-106); Potassium 3.8 mmol/L (3.5-5.1); Sodium Level 138 mmol/L (136-145)
[2020-04-19 10:54] VITALS: BP 115/59; TEMP 97.4
--- NOTE | 2020-05-08 10:44 | OP ---
Date of Procedure: 04/18/2020 Surgeon: Ariel Aaron MD Diagnoses: Acute cholecystitis, symptomatic cholelithiasis, right upper quadrant abdominal pain. Postoperative Diagnoses: Acute cholecystitis, symptomatic cholelithiasis, right upper quadrant abdom inal pain, acute suppurative cholecystitis. Procedure: Laparoscopic cholecystectomy Specimen: Gallbladder. Finding: Acute suppurative cholecystitis. Anesthesia: General plus local. Drains: ALETHA #10. Indication For Procedure: This is the case of a female, who comes to us with above diagnoses, right upper quadrant pain, diagnosed with acute cholecystitis and offered laparoscopic, possible open devi cystectomy as one of the option that she wants to have it done. The benefits, alternatives, and risk s were explained of laparoscopic, possible open cholecystectomy, which include, but not limited to in fection, bleeding, damage to adjacent structures, anesthesia complication, choledocholithiasis, bile leak, pancreatitis, [place], and even . She also understands this may not relieve any symptoms. She might need more than one surgical intervention. She understood, signed a consent. Description Of Procedure: The patient was brought to the operating room, placed in supine position. Anesthesia was done without complication. Abdominal area was prepped and draped in a sterile fashio n Marcaine 0.5% was injected for local anesthetic followed by sharp incision of the skin in the periu mbilical region. Incision was carried down to fascia, which was opened under direct vision. Periton eum was encountered, opened under direct vision. Vicryl #1 placed inside the fascia. Deedee trocar was carefully introduced. No bleeding was obtained. I placed 3 more trocars, 5 mm each one of them in the epigastric right upper quadrant area under direct visualization. This allowed me to visualize the area of the gallbladder that looked inflamed. The grasper was placed in the infundibulum, anoth er grasper in the fundus of the gallbladder and the gallbladder was retracted in the inferolateral fa shion exposing the triangle of Calot. In order for us to continue, we had to decompress the gallblad jenny. So, we put an Endo needle under direct visualization, aspirated the gallbladder, removed the ne edle under direct visualization. Once again, the gallbladder was retracted in the inferolateral fash ion exposing the triangle of Calot obtaining complete critical view of safety. Cystic duct and cysti c artery were clearly isolated, freed circumferentially and a connection between those and the gallbl adder were clearly identified. We proceeded to ligate those by using at least 3 clips proximal and 1 clip distal, ligation in the middle. Same was done with the cystic artery. No bile leak, no bleedi ng. The gallbladder was removed from liver using Bovie cauterizer and removed from abdominal cavity using EndoCatch through the umbilical incision. The area was inspected once again. No bile leak and no bleeding. ALETHA drain was left in the area since the patient has suppurative gallbladder. The ALETHA d rain was exiting through one of the trocar sites and secured in place with 3-0 nylon. After that, we deflated pneumoperitoneum, closed the fascia with #1 Vicryl, irrigated subcutaneous tissue, closed t hat with 3-0 chromic and the skin was approximated with reji. Sponge count and instrument count w ere correct. The patient tolerated the procedure well. The patient was sent to recovery in stable c ondition. VIOLETTA/AJ Voice ID: [id number] Report ID: [id number]
== END 2020-04-19 11:00 | disposition home or self-care (01) ==
LOC: ER 23:02 → ERHOLD 04-18 01:47 → INTOOBSV 04-18 01:47 → 4TH 04-18 03:10
PROVIDERS: ADMIT Surgery; ATTEND Surgery
PROC: 0FT44ZZ Resection of Gallbladder, Percutaneous Endoscopic Approach (ICD-10-PCS; principal; 2020-04-18 12:30)
DX: K80.12 Calculus of gallbladder with acute and chronic cholecystitis without obstruction (principal); I10 Essential (primary) hypertension; Z20.828 Contact with and (suspected) exposure to other viral communicable diseases; R73.03 Prediabetes; E66.01 Morbid (severe) obesity due to excess calories; Z68.41 Body mass index [BMI] 40.0-44.9, adult
CPT/HCPCS: 47562; 96365; 93005; 87070; 85025 ×2; 80048 ×2; 36415 ×2; 87205 ×2; 81025; 80076; 88304; 87075; 81003; 83690; 71045; 94010; 96375; 99285; U0003; J2704; J1100; J0330; J2250; J3010 ×2; J2270; J1170 ×2; J2710; J0696; J7799 ×3; J7120 ×2; J2405 ×2